=== PATIENT | female | born 1945 | race Asian ===

== ENCOUNTER 2018-04-23 17:01 | Inpatient (IN) | payer MEDICARE, OTHER ==
[~2018-04-23] VITALS: Ht 157.5 cm; Wt 46.3 kg
--- NOTE | 2018-04-23 17:10 | NUR ---
Dr Claros at the bedside for MSE.
[2018-04-23] MEDS ORDERED: ALBUTEROL SULFATE 2.5 MG/3 ML NEBU ONE (17:28)
[2018-04-23] MEDS ORDERED: ALBUTEROL SULFATE 2.5 MG/ 0.5 ML NEBU NEB ONE (17:30)
--- NOTE | 2018-04-23 17:34 | NUR ---
Pt is medically cleared by Dr Claros.
[2018-04-23] MEDS ORDERED: OLAN7.5T3 PO (18:05)
[2018-04-23] MEDS ORDERED: IPRA12.9 INH (18:05)
[2018-04-23] MEDS ORDERED: TRAV5DRO EACHEYE (18:05)
[2018-04-23] MEDS ORDERED: CANA1TAB8 PO (18:05)
[2018-04-23] MEDS ORDERED: PRIM250T PO (18:05)
[2018-04-23] MEDS ORDERED: BRIN8DRO OP (18:05)
[2018-04-23] MEDS ORDERED: ATOR10TA PO (18:05)
[2018-04-23] MEDS ORDERED: INSU100V10 SQ (18:05)
[2018-04-23] MEDS ORDERED: FLUT1BLS4 IH (18:05)
[2018-04-23] MEDS ORDERED: ALBU6.7H INH (18:05)
[2018-04-23] MEDS ORDERED: LEVO88TA5 PO (18:05)
[2018-04-23 18:20] VITALS: BP 104/56
--- NOTE | 2018-04-23 18:20 | NUR ---
Pt received from ER on a gurney. Pt is awake, calm, guarded, cooperative. Pt is denying distress, oriented to self. Pt is disorganized, responds don't make sense, asks repeatedly to call CHHAYA Barton. Pt is unable/refuses to sign paperwork (tremors present). Dr. Dyson and Chance Crockett notified.
[2018-04-23] MEDS ORDERED: MAGNESIUM HYDROXIDE 30 ML LIQUID UDC PO PRN (18:45)
[2018-04-23] MEDS ORDERED: ACETAMINOPHEN 325 MG TABLET PO PRN (18:45)
[2018-04-23] MEDS ORDERED: MAG HYDROX/AL HYDROX/SIMETH 30 ML LIQUID UDC PO PRN (18:45)
[2018-04-23] MEDS ORDERED: DEXTROSE 50% 50 ML DISP.SYRIN IV PRN (19:15)
[2018-04-23] MEDS: BLOOD SUGAR DIAGNOSTIC 1 EACH STRIP VI SCH (20:23)
[2018-04-23] MEDS: LATANOPROST OPHT DROP 2.5 ML BOTTLE EACHEYE SCH (20:25)
[2018-04-23] MEDS: INSULIN REGULAR, HUMAN 300 UNIT/3 ML VIAL SQ PRN (20:36)
[2018-04-23] MEDS: INSULIN GLARGINE,HUM 300 UNITS/3 ML CARTRIDGE SQ SCH (20:37)
[2018-04-23] MEDS ORDERED: TRAVOPROST 0.004% OPHT DROP 2.5 ML BOTTLE EACHEYE SCH (21:00)
[2018-04-23] MEDS ORDERED: INSULIN DETEMIR 300 UNIT/3 ML CARTRIDGE SQ SCH (21:00)
[2018-04-24] MEDS: BLOOD SUGAR DIAGNOSTIC 1 EACH STRIP VI SCH ×4 (06:46→20:59)
[2018-04-24 07:30] VITALS: BP 115/49
[2018-04-24] MEDS: FLUTICASONE/VILANTEROL 1 EACH BLST.W.DEV INH SCH (08:25)
[2018-04-24] MEDS: INSULIN REGULAR, HUMAN 300 UNIT/3 ML VIAL SQ PRN ×3 (12:13→21:06)
--- NOTE | 2018-04-24 14:09 | NUR ---
Initial Discharge Plan: Patient lives with her in a condo [[address] [place] [address]; [address] [place] [address]; ]. Per patients , he would like patient to return home as she is "happy" there. Patients , Sesar Reddy [[phone]] will be involved in treatment. riprap worker will continue to collaborate with patients MD and plan a safe and proper discharge.
--- NOTE | 2018-04-24 14:50 | NUR ---
UR Note: onyx chip terrazzo worker faxed patient clinicals to Jame with [facility] [phone: ; fax: ] for 04/24/2018.
[2018-04-24 19:30] VITALS: BP 130/65
[2018-04-24] MEDS: DIVALPROEX 125 MG TABLET.DR PO SCH (20:55)
[2018-04-24] MEDS ORDERED: OLANZAPINE 2.5 MG TABLET PO SCH (21:00)
[2018-04-24] MEDS: INSULIN GLARGINE,HUM 300 UNITS/3 ML CARTRIDGE SQ SCH (21:04)
[2018-04-24] MEDS: LATANOPROST OPHT DROP 2.5 ML BOTTLE EACHEYE SCH (21:21)
[2018-04-24] MEDS: TEMAZEPAM 7.5 MG CAPSULE PO PRN (22:54)
[2018-04-25] MEDS: LORAZEPAM 0.5 MG TABLET PO PRN (00:08)
[2018-04-25] MEDS: BLOOD SUGAR DIAGNOSTIC 1 EACH STRIP VI SCH ×4 (07:16→20:27)
[2018-04-25 07:30] VITALS: BP 99/44
[2018-04-25] MEDS: FLUTICASONE/VILANTEROL 1 EACH BLST.W.DEV INH SCH (08:16)
[2018-04-25] MEDS: DIVALPROEX 125 MG TABLET.DR PO SCH (08:16)
[2018-04-25] MEDS: INSULIN REGULAR, HUMAN 300 UNIT/3 ML VIAL SQ PRN (12:16)
[2018-04-25 16:18] VITALS: BP 129/42
[2018-04-25 19:30] VITALS: BP 130/70
[2018-04-25] MEDS: LATANOPROST OPHT DROP 2.5 ML BOTTLE EACHEYE SCH (20:44)
[2018-04-25] MEDS: DIVALPROEX 250 MG TABLET.DR PO SCH (20:44)
[2018-04-25] MEDS: BENZTROPINE MESYLATE 0.5 MG TABLET PO SCH (20:45)
[2018-04-25] MEDS: INSULIN GLARGINE,HUM 300 UNITS/3 ML CARTRIDGE SQ SCH (20:48)
[2018-04-25] MEDS ORDERED: DIVALPROEX 125 MG TABLET.DR PO SCH (21:00)
[2018-04-25] MEDS ORDERED: OLANZAPINE 2.5 MG TABLET PO SCH (21:00)
[2018-04-26] MEDS: BLOOD SUGAR DIAGNOSTIC 1 EACH STRIP VI SCH ×4 (06:41→21:17)
--- NOTE | 2018-04-26 07:00 | NUR ---
Received pt to care, pt laying in bed, pt pleasant, A&O X1-2, pt complied with taking meds, pt disorganized, confused, redirected to bed several times before she finally stayed in her room and slept throughout the night. Pt refused to have a snack but did drink 2 juices.
[2018-04-26 07:30] VITALS: BP 101/42
[2018-04-26] MEDS: DIVALPROEX 250 MG TABLET.DR PO SCH ×2 (08:54→21:07)
[2018-04-26] MEDS: FLUTICASONE/VILANTEROL 1 EACH BLST.W.DEV INH SCH (08:56)
--- NOTE | 2018-04-26 11:45 | NUR ---
Noted pt with a cough while performing her 1130 Accu check. Notified RESIDENT DOCTOR
[2018-04-26] MEDS: INSULIN REGULAR, HUMAN 300 UNIT/3 ML VIAL SQ PRN ×3 (12:08→21:09)
--- NOTE | 2018-04-26 12:21 | NUR ---
New orders from HOSPICE CLINICAL MARKETER Kvng for a CXR and cough medication 100mg PO Robitussin sugar free Q4PRN (d/t DM). Noted and carried out.
--- NOTE | 2018-04-26 13:25 | NUR ---
gps/Checking Department Supervisor- Noted patient to have increased congestion, moist coughing, difficulty expectorating secretions. Kept up on her george-chair during lunch, needing min. assist. and cueing . Had portable chest x-ray done this pm.
[2018-04-26] MEDS: LORAZEPAM 0.5 MG TABLET PO PRN (13:36)
[2018-04-26 16:18] VITALS: BP 124/56
[2018-04-26] MEDS: GUAIFENESIN SUGAR FREE 100 MG/5 ML UDC PO PRN ×2 (17:12→21:28)
--- NOTE | 2018-04-26 17:23 | NUR ---
Gps/Container Shop Welder- Stayed up on her george-chair for dinner, needed encouragement to eat,adequate fluids. Occ. noted irritability, from crying spells, wanting to go home. Safety reviewed continue to emphasized. No Hypo/hyperglycemia noted. Less coughing noted this pm.
--- NOTE | 2018-04-26 17:38 | NUR ---
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 Addendum: 04/26/18 at 1740 by NICHO POTTER RN Amended: Links added.
--- NOTE | 2018-04-26 17:53 | NUR ---
GPS.RN- Patient visiting, Sesar, provided history to patient, patient with pseudoparkinsonism, patient was seen previously by 3 doctors she was determined to not have Parkinsons, but pseudoparkinsonism. patient also had Thyroid removed in 01/2005. Discussed with Kvng Smith N.P. patient previously on Synthroid 88mcg daily and Primidone 50mg daily however medications not resumed, received orders to continue meds and order TSH level in am.
--- NOTE | 2018-04-26 19:50 | NUR ---
RECEIVED PATIENT SITTING IN A BONNY CHAIR NEAR THE NURSING STATION. SHE IS NOTED A/O X 1 OR 2. FORGETFUL, AND DISORGANIZED. SHE IS ABLE TO AMBULATE WITH STEADY GAIT AND ABLE TO MAKE HER NEEDS KNOWN. PATIENT NOTED WITH BRIGHT AFFECT, HAPPY FACIAL EXPRESSION. POOR HISTORIAN, POOR INSIGHT INTO THE REASON FOR HER ADMISSION TO MHU WAS ALSO NOTED. SAFETY WAS EMPHASIS. WILL CONTINUE TO MONITOR.
[2018-04-26 20:34] VITALS: BP 114/54
[2018-04-26] MEDS ORDERED: OLANZAPINE 5 MG TABLET PO SCH (21:00)
[2018-04-26] MEDS ORDERED: OLANZAPINE 2.5 MG TABLET PO SCH (21:00)
[2018-04-26] MEDS: LATANOPROST OPHT DROP 2.5 ML BOTTLE EACHEYE SCH (21:07)
[2018-04-26] MEDS: BENZTROPINE MESYLATE 0.5 MG TABLET PO SCH (21:07)
[2018-04-26] MEDS: INSULIN GLARGINE,HUM 300 UNITS/3 ML CARTRIDGE SQ SCH (21:10)
--- NOTE | 2018-04-26 21:30 | NUR ---
PATIENT NOTED WITH DRY MOUTH DRY THROAT, COUGHING, RASPY VOICE. FLUIDS WERE OFFER WELL ROBITUSSIN PO PRN WAS GIVEN. WILL CONTINUE TO MONITOR
--- NOTE | 2018-04-26 23:00 | NUR ---
PATIENT NOTED AWAY, CONTINUE ASKING FOR FLUIDS, CONTINUE FORGETFUL AND DISORGANIZED. TEMAZEPAM 7.5MG PO PRN WAS GIVEN FOR INSOMNIA. WILL CONTINUE TO MONITOR,
[2018-04-26] MEDS: TEMAZEPAM 7.5 MG CAPSULE PO PRN (23:03)
--- NOTE | 2018-04-27 01:30 | NUR ---
PATIENT NOTED STILL AWAKE. IRRITABLE AND ANXIOUS, MULTIPLE REDIRECTION GIVEN, YET INEFFECTIVE. ATIVAN 0.5MG PO PRN WAS GIVEN FOR ANXIETY. WILL CONTINUE TO MONITOR.
[2018-04-27] MEDS: LORAZEPAM 0.5 MG TABLET PO PRN (01:32)
--- NOTE | 2018-04-27 03:45 | NUR ---
PATIENT NOTED AWAKE AND SLEEPING INTERMITTENTLY. NO COUGH NOTED AT THIS TIME. WILL CONTINUE TO MONJTOR.
[2018-04-27] MEDS: LEVOTHYROXINE SODIUM 88 MCG TABLET PO SCH (06:49)
[2018-04-27 07:11] LABS: BASOPHILS % (AUTO) 0.2 % (0.0-2.0); EOSINOPHILS % (AUTO) 0.4 % (0.0-7.0); HEMATOCRIT 32.4 % (31.2-41.9); HEMOGLOBIN 11.2 g/dL (10.9-14.3); LYMPHOCYTES # (AUTO) 1.6 K/uL (20.0-40.0); LYMPHOCYTES % (AUTO) 24.8 % (20.5-51.5); MEAN CORPUSCULAR HEMOGLOBIN 31.7 uug (24.7-32.8); MEAN CORPUSCULAR HGB CONC 35 g/dL (32.3-35.6); MEAN CORPUSCULAR VOLUME 91.3 fL (75.5-95.3); MONOCYTES # (AUTO) 0.4 K/uL (2.0-10.0); MONOCYTES % (AUTO) 6.2 % (0.0-11.0); NEUTROPHILS # (AUTO) 4.4 K/uL (1.8-8.9); NEUTROPHILS % (AUTO) 68.4 % (38.5-71.5); PLATELET COUNT (AUTO) 401 K/uL (179-408); RED BLOOD CELL COUNT(AUTO) 3.55 MIL/uL (3.63-4.92); WHITE BLOOD COUNT (AUTO) 6.5 K/uL (3.8-11.8)
[2018-04-27 07:26] LABS: CARBON DIOXIDE 27 mmol/L (21-32); CHLORIDE 102 mmol/L (98-107); CREATININE 0.5 mg/dL (0.6-1.3); MAGNESIUM 1.9 mg/dL (1.8-2.4); PHOSPHOROUS 3.6 mg/dL (2.5-4.9); POTASSIUM 3.5 mmol/L (3.5-5.1); UREA NITROGEN, BLOOD 11 mg/dL (7-18)
[2018-04-27 07:29] LABS: GLUCOSE 43 mg/dL (74-106)
[2018-04-27 07:30] VITALS: BP 105/50
[2018-04-27] MEDS: BLOOD SUGAR DIAGNOSTIC 1 EACH STRIP VI SCH ×4 (07:32→20:40)
--- NOTE | 2018-04-27 07:33 | NUR ---
At approx 0645, patient blood glucose was 43, it was immediately repeated and it was 38. patient was immediately given 8oz orange juice and half of tuna sandwich. blood glucose test was repeated and is 123. will continue to monitor.
[2018-04-27 07:38] LABS: THYROID STIMULATING HORMONE 5.166 mIU/mL (0.358-3.740)
[2018-04-27] MEDS: DIVALPROEX 250 MG TABLET.DR PO SCH ×2 (08:25→20:41)
[2018-04-27] MEDS: PRIMIDONE 50 MG TABLET PO SCH (08:25)
[2018-04-27] MEDS: FLUTICASONE/VILANTEROL 1 EACH BLST.W.DEV INH SCH (08:26)
[2018-04-27] MEDS: INSULIN REGULAR, HUMAN 300 UNIT/3 ML VIAL SQ PRN ×2 (11:23→16:48)
--- NOTE | 2018-04-27 16:19 | NUR ---
UR Note: speeder worker faxed patient clinicals to Jame [fax: [phone]; ph#: [phone]], correctional case manager, and received confirmation of successful fax at 15:06.
[2018-04-27 16:40] VITALS: BP 101/46
[2018-04-27 20:00] VITALS: BP 94/46
[2018-04-27] MEDS: LATANOPROST OPHT DROP 2.5 ML BOTTLE EACHEYE SCH (20:41)
[2018-04-27] MEDS: BENZTROPINE MESYLATE 0.5 MG TABLET PO SCH (20:41)
[2018-04-27] MEDS: OLANZAPINE 5 MG TABLET PO SCH (20:50)
[2018-04-27] MEDS ORDERED: INSULIN GLARGINE,HUM 300 UNITS/3 ML CARTRIDGE SQ SCH (21:00)
[2018-04-28] MEDS: LEVOTHYROXINE SODIUM 88 MCG TABLET PO SCH (06:04)
--- NOTE | 2018-04-28 06:21 | NUR ---
GPS: Remain calm and cooperative with medications and care. assisted with adl's. patient resting in george chair near nursing station.slept 7 hrs through the night. no behavior problem noted.
--- NOTE | 2018-04-28 06:38 | NUR ---
GPS: BLOOD SUGAR 36MG/DL REPEATED BLOOD SUGAR 39MG/DL. ant Nelson reported via phone. orange juice 8oz po given with sixto barney. after 15 minuted blood sugar 74 mg/dl. charge nurse aware.patient a/o x3 ambulatory. no c/o pain or discomfort. v/s wnl. continue plan of care.
[2018-04-28] MEDS: BLOOD SUGAR DIAGNOSTIC 1 EACH STRIP VI SCH ×5 (06:44→20:53)
[2018-04-28 07:30] VITALS: BP 103/49
[2018-04-28] MEDS: FLUTICASONE/VILANTEROL 1 EACH BLST.W.DEV INH SCH (09:39)
[2018-04-28] MEDS: PRIMIDONE 50 MG TABLET PO SCH (09:39)
[2018-04-28] MEDS: DIVALPROEX 250 MG TABLET.DR PO SCH ×2 (09:39→20:13)
[2018-04-28] MEDS: INSULIN REGULAR, HUMAN 300 UNIT/3 ML VIAL SQ PRN ×3 (11:44→20:57)
[2018-04-28 17:40] VITALS: BP 107/52
[2018-04-28 20:05] VITALS: BP_SYST 111; BP_SYST 112; BP_DIAS 40; BP_DIAS 59
[2018-04-28] MEDS: OLANZAPINE 5 MG TABLET PO SCH (20:13)
[2018-04-28] MEDS: LATANOPROST OPHT DROP 2.5 ML BOTTLE EACHEYE SCH (20:13)
[2018-04-28] MEDS: BENZTROPINE MESYLATE 0.5 MG TABLET PO SCH (20:13)
[2018-04-28] MEDS: INSULIN GLARGINE,HUM 300 UNITS/3 ML CARTRIDGE SQ SCH (20:58)
--- NOTE | 2018-04-29 05:57 | NUR ---
GPS: Remain calm and cooperative. slept 6 hrs through the night. no agitation noted. resting in george chair near the nursing station.
[2018-04-29] MEDS: LEVOTHYROXINE SODIUM 88 MCG TABLET PO SCH (06:16)
[2018-04-29] MEDS: BLOOD SUGAR DIAGNOSTIC 1 EACH STRIP VI SCH ×4 (06:32→20:39)
[2018-04-29 07:53] VITALS: BP 103/49
[2018-04-29] MEDS: PRIMIDONE 50 MG TABLET PO SCH (08:02)
[2018-04-29] MEDS: DIVALPROEX 250 MG TABLET.DR PO SCH ×2 (08:02→20:16)
[2018-04-29] MEDS: FLUTICASONE/VILANTEROL 1 EACH BLST.W.DEV INH SCH (08:03)
[2018-04-29] MEDS: INSULIN REGULAR, HUMAN 300 UNIT/3 ML VIAL SQ PRN ×3 (12:19→20:44)
[2018-04-29 15:19] VITALS: BP 134/51
[2018-04-29 20:00] VITALS: BP 115/48
[2018-04-29] MEDS: OLANZAPINE 5 MG TABLET PO SCH (20:15)
[2018-04-29] MEDS: LATANOPROST OPHT DROP 2.5 ML BOTTLE EACHEYE SCH (20:15)
[2018-04-29] MEDS: BENZTROPINE MESYLATE 0.5 MG TABLET PO SCH (20:16)
[2018-04-29] MEDS: INSULIN GLARGINE,HUM 300 UNITS/3 ML CARTRIDGE SQ SCH (20:45)
[2018-04-30] MEDS: LEVOTHYROXINE SODIUM 88 MCG TABLET PO SCH (06:04)
--- NOTE | 2018-04-30 06:16 | NUR ---
GPS: REMAIN CALM AND COOPERATIVE SLEPT 8 HRS THROUGH THE NIGHT.
[2018-04-30] MEDS: BLOOD SUGAR DIAGNOSTIC 1 EACH STRIP VI SCH ×4 (06:31→20:43)
[2018-04-30 07:30] VITALS: BP 108/51
--- NOTE | 2018-04-30 07:43 | NUR ---
report received from Alexandr NOBLE. 72 yr old female patient admitted on 04/23/18. plan for dc home today. patient still sleepin on bed Addendum: 04/30/18 at 0744 by YENNY EVANGELISTA RN Amended: Links added.
[2018-04-30] MEDS: INSULIN REGULAR, HUMAN 300 UNIT/3 ML VIAL SQ PRN ×4 (08:13→20:58)
--- NOTE | 2018-04-30 08:20 | NUR ---
am willi 259, covered with 6 units humulin R SQ Addendum: 04/30/18 at 0821 by YENNY EVANGELISTA RN Amended: Links added.
[2018-04-30] MEDS: OLANZAPINE 5 MG TABLET PO SCH ×2 (09:25→20:36)
[2018-04-30] MEDS: DIVALPROEX 250 MG TABLET.DR PO SCH ×2 (09:25→20:27)
[2018-04-30] MEDS: PRIMIDONE 50 MG TABLET PO SCH (09:27)
[2018-04-30] MEDS: FLUTICASONE/VILANTEROL 1 EACH BLST.W.DEV INH SCH (09:28)
--- NOTE | 2018-04-30 09:43 | NUR ---
Discharge Note: Patient will be discharged back to home [[address] [place] [address] , [address] [place] [address]] with her , Sesar [ ] who will provide transportation for patient at 12:00. nutrition services worker called and spoke with Sesar informing him of patient discharge and he is agreeable with discharge plan. Patient is alert and oriented x2 and denies any SI/HI. Patient will follow-up with Dr. Mata Henriquez [ ] (primary care physician) and Dr. Le Srinivasan (psychiatrist). Patient was given outpatient mental health resources [facility] Crisis Line , Surekha Dubois , and the [place] Suicide Prevention Lifeline . Patient is aware of discharge plan and is agreeable. Addendum: 04/30/18 at 1253 by UDAY CASTELLANOS Additional Information: nutrition services worker received phone call from Jame [[phone]], case therapist, at [facility] providing information for outpatient follow-up. Patient will receive outpatient follow-up by Dr. Montes[ [phone]] and has an appointment scheduled for 05/07/2018 at 10:am. Patient additionally will follow outpatient with Dr. Yosef Knott (psychiatrist). No appointment set-up at this time.
[2018-04-30] MEDS: LORAZEPAM 0.5 MG TABLET PO PRN (11:16)
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
--- NOTE | 2018-04-30 11:19 | NUR ---
medicated for anxiety Addendum: 04/30/18 at 1119 by YENNY EVANGELISTA RN Amended: Links added.
--- NOTE | 2018-04-30 12:33 | NUR ---
willi 266, covered with 6 units humulin r Addendum: 04/30/18 at 1233 by YENNY EVANGELISTA RN Amended: Links added.
--- NOTE | 2018-04-30 12:40 | NUR ---
patient decline being discharged. social sciences department chair her to talk to patient. here to pick patient up Addendum: 04/30/18 at 1240 by YENNY EVANGELISTA RN Amended: Links added.
--- NOTE | 2018-04-30 13:38 | NUR ---
Discharge update: Patient refusing to discharge stating "I need to wait for JING". Per , Dr. Brizuela, patient displaying psychotic symptoms and not ready to discharge. Patient will be monitored for a couple more days on unit. Addendum: 05/01/18 at 1147 by UDAY CASTELLANOS Additional Information: Patient was unable to be discharged yesterday due to patient agitation and patient's inability to be redirected. Patient's behavior included delusional thought process, psychomotor agitation, thought perseveration. Patient's was also on sight during discharge and states "she [patient] is far from baseline" and felt he couldn't take her home "in this state". ice cream vault worker's putty and caulking supervisor, Angela Evans [[phone]] needed to be called for assistance.
--- NOTE | 2018-04-30 15:37 | NUR ---
UR Note: drive worker faxed clincals for the weekend to Jame [[phone]; fax: [phone]], assistant merchandise manager, at [facility]. drive worker left voicemail for Jame stating that patient was not discharging today as originally anticipated due to psychotic behavior.
[2018-04-30 16:00] VITALS: BP 151/52
--- NOTE | 2018-04-30 16:34 | NUR ---
willi 276, covered with 6 units humulin R sq Addendum: 04/30/18 at 1634 by YENNY EVANGELISTA RN Amended: Links added.
--- NOTE | 2018-04-30 19:20 | NUR ---
report given to Isi RN Addendum: 04/30/18 at 1921 by YENNY EVANGELISTA RN Amended: Links added.
[2018-04-30 20:08] VITALS: BP 105/41
[2018-04-30] MEDS: BENZTROPINE MESYLATE 0.5 MG TABLET PO SCH (20:27)
[2018-04-30] MEDS: LATANOPROST OPHT DROP 2.5 ML BOTTLE EACHEYE SCH (20:28)
[2018-04-30] MEDS: INSULIN GLARGINE,HUM 300 UNITS/3 ML CARTRIDGE SQ SCH (20:49)
[2018-04-30] MEDS: GUAIFENESIN SUGAR FREE 100 MG/5 ML UDC PO PRN (20:59)
--- NOTE | 2018-04-30 23:10 | NUR ---
RECEIVED PATIENT IN BED AND UPON APPROACH SHE WAS NOTED TO BE TALKING TO HERSELF BUT WILL NOT SAY IF SHE HEARD VOICES AND WAS RESPONDING TO INTERNAL STIMULI. SHE IS GUARDED AND EASILY IRRITABLE BUT IS NOT DIRECTED AT STAFF.SHE IS HOWEVER COMPLIANT WITH HER MEDICATIONS.BLOOD SUGAR LEVELS AT 332 WITH INSULIN COVERAGE BY SLIDING SCALE AND LANTUS. NO S/S OF HYPOGLYCEMIA NOTED.IN DISTRESS ON SCHEDULED ROUNDS. WILL CONTINUE TO MONITOR.
[2018-05-01] MEDS: GUAIFENESIN SUGAR FREE 100 MG/5 ML UDC PO PRN (05:36)
[2018-05-01] MEDS: LEVOTHYROXINE SODIUM 88 MCG TABLET PO SCH (06:33)
[2018-05-01] MEDS: BLOOD SUGAR DIAGNOSTIC 1 EACH STRIP VI SCH ×2 (06:34→11:55)
--- NOTE | 2018-05-01 06:44 | NUR ---
SHE SLEPT FOR APPROX.8HRS WITH INTERMITTENT COUGH. GUAIFENESIN GIVEN WITH FAIRLY GOOD EFFECT. ACCU CHECK THIS AM IS 162.
[2018-05-01 07:30] VITALS: BP 106/59
[2018-05-01] MEDS: OLANZAPINE 5 MG TABLET PO SCH (09:53)
[2018-05-01] MEDS: DIVALPROEX 250 MG TABLET.DR PO SCH (09:53)
[2018-05-01] MEDS: PRIMIDONE 50 MG TABLET PO SCH (09:55)
[2018-05-01] MEDS: FLUTICASONE/VILANTEROL 1 EACH BLST.W.DEV INH SCH (09:55)
[2018-05-01] MEDS: INSULIN REGULAR, HUMAN 300 UNIT/3 ML VIAL SQ PRN ×2 (09:58→12:28)
--- NOTE | 2018-05-01 10:01 | NUR ---
Discharge Note: Patient will be discharged back to home [[address] [place] [address] , [address] [place] [address]] with her , Sesar [ ] who will provide transportation for patient at 12:00. aboriginal education worker coordinator is arranging home health for patient and is awaiting authorization from Jame [[phone]], case packer, at [facility]. aboriginal education worker coordinator called and spoke with Sesar informing him of patient discharge and he is agreeable with discharge plan. Patient is alert and oriented x2 and denies any SI/HI. Patient was briefed on discharge and aware and agreeable to having her pick her up at 12:00. Patient will follow-up with Dr. Mata Henriquez [ ], primary care physician, on 05/07/18 at 10:45am. Patient will follow-up outpatient with her psychiatrist, Dr. Dyer [[phone]]. Patient was given outpatient mental health resources [facility] Crisis Line , Surekha Dubois , and the National Suicide Prevention Lifeline . Addendum: 05/01/18 at 1031 by UDAY CASTELLANOS Additional Information: aboriginal education worker coordinator received phone call from Jame [[phone]], case packer, at [facility] stating that patient has been approved for home health services with [facility] [[phone]]. The agency has been scheduled to come out tomorrow to provide service to patient. Addendum: 05/01/18 at 1207 by UDAY CASTELLANOS Update: Patient will now be discharged via [facility] [employer] at 1:30pm. Pickup was arranged by Yolette with [facility] [[phone]] who has noted that patient should be walked to the door where patient's , Sesar [[phone]], will receive her. Patient has been made aware of updated discharge. Transportation will be paid for by [facility] and will cost $83.00. Addendum: 05/01/18 at 1427 by UDAY CASTELLANOS Additional Information: Due to patient un-cooperativeness with discharge, patient will now need [employer] transportation, which has two transporters. Cost for [facility] gurney level is $190 which patient , Sesar, has agreed to pay for. New transportation was made by Yolette [[phone]], [facility] coordinator, and she is aware that Sesar has agreed to pay for transportation.
--- NOTE | 2018-05-01 12:51 | NUR ---
patient still paranoia taking non sense about she will going home with her and person name Ty Barton,refused to discharge home with her alone,Chata Tai made aware. will discharge pt home via [facility] at 1:30pm. Pickup was arranged by Yolette with [facility] [[phone]] who has noted that patient should be walked to the door where patient's , Sesar [[phone]], will receive her. Patient has been made aware of updated discharge.
--- NOTE | 2018-05-01 13:26 | NUR ---
1300 Called patient , Sesar regarding his will be diharged today via [facility], private transportation. informed medications to continue at home and prescription is included on patient's discharge pocket. stated that he already had patint's medications it was faxed yesterday to [facility] pharmacy. Also, informed that patient refused to signed for returned belongings and valuables, but were sending it with the patient.Patient's verbalized understanding.
[2018-05-01] MEDS: LORAZEPAM 0.5 MG TABLET PO PRN (14:19)
--- NOTE | 2018-05-01 16:17 | NUR ---
1600 Patient picked up by [facility] with clint and 2 person to assist patient. Patient discharged home stable condition , denies SI/HI.
[2018-05-01] MEDS ORDERED: INSULIN GLARGINE,HUM 300 UNITS/3 ML CARTRIDGE SQ SCH (21:00)
--- NOTE | 2018-05-02 09:35 | NUR ---
Firearms Report (late entry for 05/01/2018): dimension mill worker submitted a [employer] firearms report for patient who is on a 5250 gravely disabled certification.
--- NOTE | 2018-05-02 10:45 | NUR ---
UR Note: nursery worker received authorization for stay [[id number]] for 04/23/2018-05/01/2018 from Jame [[phone]], skilled nursing case manager, at [facility]. Per Jame, apparently patient has declined home health services that were offered.
--- NOTE | 2018-05-03 11:21 | NUR ---
UR Note: grounds worker faxed SW discharge note and discharge prescriptions to Jame director of casework, at [facility] [phone: [phone]; fax: [phone]].
== END 2018-05-01 16:00 | disposition home health service (06) | DRG 885 ==
LOC: ER 17:04 → GPS 17:57
PROVIDERS: ADMIT Psychiatry & Neurology Psychosomatic Medicine; ATTEND Nurse Practitioner Acute Care
DX: F25.0 Schizoaffective disorder, bipolar type (principal); E43 Unspecified severe protein-calorie malnutrition; E11.65 Type 2 diabetes mellitus with hyperglycemia; Z68.1 Body mass index [BMI] 19.9 or less, adult; F17.210 Nicotine dependence, cigarettes, uncomplicated; H40.9 Unspecified glaucoma; J44.9 Chronic obstructive pulmonary disease, unspecified; I10 Essential (primary) hypertension; E78.5 Hyperlipidemia, unspecified; Z73.6 Limitation of activities due to disability; F29 Unspecified psychosis not due to a substance or known physiological condition; M62.50 Muscle wasting and atrophy, not elsewhere classified, unspecified site; Z79.4 Long term (current) use of insulin; F19.90 Other psychoactive substance use, unspecified, uncomplicated
CPT/HCPCS: 36415; 71045; 80164; 83735; 84100; 84443; 85025; 92610; 97116; 97530; A4663; J1815; J3490

== ENCOUNTER 2018-05-31 19:24 | Inpatient (IN) | payer OTHER ==
[~2018-05-31] VITALS: Ht 157.5 cm; Wt 45.8 kg
[~2018-05-31 19:24] MED LIST: ALBU6.7H INH; ATOR10TA PO; BRIN8DRO OP; CANA1TAB8 PO; FLUT1BLS4 IH; INSU100V10 SQ; IPRA12.9 INH; LEVO88TA5 PO; PRIM250T PO; TRAV5DRO EACHEYE
[2018-05-31] MEDS ORDERED: ONDA4VIA52 IV (19:46)
[2018-05-31] MEDS ORDERED: TRAZ-182 PO (19:46)
[2018-05-31] MEDS ORDERED: DIVA250T PO (19:46)
[2018-05-31] MEDS ORDERED: OLAN7.5T3 PO (19:46)
[2018-05-31] MEDS ORDERED: ATOR80TA PO (19:46)
[2018-05-31] MEDS ORDERED: LORA0.5T PO (19:46)
[2018-05-31] MEDS ORDERED: ASPI300S RC (19:46)
[2018-05-31] MEDS ORDERED: ASPI-869 PO (19:46)
[2018-05-31] MEDS ORDERED: HALO5AMP2 IJ (19:46)
[2018-05-31] MEDS ORDERED: ACET325T53 PO (19:46)
[2018-05-31] MEDS ORDERED: INSU100V7 SQ (19:46)
[2018-05-31 20:00] VITALS: BP 105/42
[2018-05-31] MEDS ORDERED: ACETAMINOPHEN 325 MG TABLET PO PRN ×2 (20:15→21:30)
[2018-05-31] MEDS ORDERED: TEMAZEPAM 7.5 MG CAPSULE PO PRN (20:15)
[2018-05-31] MEDS ORDERED: LORAZEPAM 0.5 MG TABLET PO PRN (20:15)
[2018-05-31] MEDS ORDERED: MAGNESIUM HYDROXIDE 30 ML LIQUID UDC PO PRN (20:15)
[2018-05-31] MEDS ORDERED: MAG HYDROX/AL HYDROX/SIMETH 30 ML LIQUID UDC PO PRN (20:15)
[2018-05-31] MEDS: ATORVASTATIN 40 MG TABLET PO SCH (21:00)
[2018-05-31 21:29] VITALS: BP 105/48
[2018-05-31] MEDS ORDERED: Medication Not On Formulary EA (Atorvastatin Calcium (Lipitor) 80 MG) PO SCH (21:30)
[2018-05-31] MEDS ORDERED: ONDANSETRON 4 MG/2 ML VIAL IV PRN (21:30)
[2018-05-31] MEDS ORDERED: ASPIRIN EC 325 MG TABLET.DR PO ONE (22:00)
[2018-05-31] MEDS ORDERED: INSULIN GLARGINE,HUM 300 UNITS/3 ML CARTRIDGE SQ SCH (22:00)
[2018-05-31] MEDS ORDERED: INSULIN GLARGINE,HUM 300 UNITS/3 ML CARTRIDGE SQ ONE (22:45)
[2018-06-01] MEDS: LEVOTHYROXINE SODIUM 88 MCG TABLET PO SCH (06:31)
[2018-06-01] MEDS ORDERED: BLOOD SUGAR DIAGNOSTIC 1 EACH STRIP VI SCH ×2 (07:30)
[2018-06-01 08:56] LABS: BASOPHILS % (AUTO) 0.6 % (0.0-2.0); EOSINOPHILS # (AUTO) 0.2 K/uL (0.0-0.7); EOSINOPHILS % (AUTO) 4.2 % (0.0-7.0); HEMATOCRIT 33.2 % (31.2-41.9); HEMOGLOBIN 11.3 g/dL (10.9-14.3); LYMPHOCYTES # (AUTO) 2.2 K/uL (20.0-40.0); LYMPHOCYTES % (AUTO) 39.9 % (20.5-51.5); MEAN CORPUSCULAR HEMOGLOBIN 31.1 uug (24.7-32.8); MEAN CORPUSCULAR HGB CONC 34 g/dL (32.3-35.6); MEAN CORPUSCULAR VOLUME 91.8 fL (75.5-95.3); MONOCYTES # (AUTO) 0.6 K/uL (2.0-10.0); MONOCYTES % (AUTO) 10.9 % (0.0-11.0); NEUTROPHILS # (AUTO) 2.4 K/uL (1.8-8.9); NEUTROPHILS % (AUTO) 44.4 % (38.5-71.5); PLATELET COUNT (AUTO) 296 K/uL (179-408); RED BLOOD CELL COUNT(AUTO) 3.62 MIL/uL (3.63-4.92); WHITE BLOOD COUNT (AUTO) 5.5 K/uL (3.8-11.8)
[2018-06-01] MEDS ORDERED: ASPIRIN 300 MG RECTAL SUPP RC SCH (09:00)
[2018-06-01 09:22] LABS: CARBON DIOXIDE 24 mmol/L (21-32); CHLORIDE 108 mmol/L (98-107); CREATININE 0.9 mg/dL (0.6-1.3); GLUCOSE 186 mg/dL (74-106); POTASSIUM 4.1 mmol/L (3.5-5.1); UREA NITROGEN, BLOOD 24 mg/dL (7-18)
[2018-06-01] MEDS: ASPIRIN EC 325 MG TABLET.DR PO SCH (09:39)
[2018-06-01 10:13] VITALS: BP 95/43
[2018-06-01] MEDS ORDERED: DEXTROSE 50% 50 ML DISP.SYRIN IV PRN (11:15)
[2018-06-01] MEDS: BLOOD SUGAR DIAGNOSTIC 1 EACH STRIP VI SCH ×3 (12:09→20:16)
[2018-06-01] MEDS: INSULIN REGULAR, HUMAN 300 UNIT/3 ML VIAL SQ PRN ×2 (12:17→18:00)
[2018-06-01] MEDS: DIVALPROEX 250 MG TABLET.DR PO SCH (17:58)
[2018-06-01] MEDS: ATORVASTATIN 40 MG TABLET PO SCH (20:16)
[2018-06-01] MEDS: OLANZAPINE ZYDIS 5 MG TAB.RAPDIS PO SCH (20:17)
[2018-06-01] MEDS: INSULIN GLARGINE,HUM 300 UNITS/3 ML CARTRIDGE SQ SCH (20:24)
[2018-06-01] MEDS: INSULIN REGULAR, HUMAN 300 UNITS/3 ML VIAL SQ PRN (20:26)
[2018-06-01 20:57] VITALS: BP 109/44
[2018-06-02] MEDS: BLOOD SUGAR DIAGNOSTIC 1 EACH STRIP VI SCH ×4 (06:30→20:27)
[2018-06-02] MEDS: LEVOTHYROXINE SODIUM 88 MCG TABLET PO SCH (06:30)
[2018-06-02 07:30] VITALS: BP 109/57
[2018-06-02] MEDS: INSULIN REGULAR, HUMAN 300 UNIT/3 ML VIAL SQ PRN ×3 (08:12→17:00)
[2018-06-02] MEDS: OLANZAPINE ZYDIS 5 MG TAB.RAPDIS PO SCH ×2 (08:32→20:06)
[2018-06-02] MEDS: DIVALPROEX 250 MG TABLET.DR PO SCH ×3 (08:32→17:13)
[2018-06-02] MEDS: ASPIRIN EC 325 MG TABLET.DR PO SCH (08:33)
[2018-06-02 15:04] VITALS: BP 100/41
[2018-06-02] MEDS: ATORVASTATIN 40 MG TABLET PO SCH (20:06)
[2018-06-02 20:27] VITALS: BP 118/44
[2018-06-02] MEDS: INSULIN REGULAR, HUMAN 300 UNITS/3 ML VIAL SQ PRN (20:30)
[2018-06-02] MEDS: INSULIN GLARGINE,HUM 300 UNITS/3 ML CARTRIDGE SQ SCH (20:31)
[2018-06-03] MEDS: BLOOD SUGAR DIAGNOSTIC 1 EACH STRIP VI SCH ×4 (06:34→20:24)
[2018-06-03] MEDS: LEVOTHYROXINE SODIUM 88 MCG TABLET PO SCH (06:36)
[2018-06-03 07:30] VITALS: BP 110/47
[2018-06-03] MEDS: INSULIN REGULAR, HUMAN 300 UNIT/3 ML VIAL SQ PRN ×3 (07:42→17:02)
[2018-06-03] MEDS: OLANZAPINE ZYDIS 5 MG TAB.RAPDIS PO SCH ×2 (08:09→20:18)
[2018-06-03] MEDS: ASPIRIN EC 325 MG TABLET.DR PO SCH (08:09)
[2018-06-03] MEDS: DIVALPROEX 250 MG TABLET.DR PO SCH ×3 (08:09→16:01)
[2018-06-03 15:25] VITALS: BP 108/60
[2018-06-03] MEDS: ATORVASTATIN 40 MG TABLET PO SCH (20:18)
[2018-06-03 20:23] VITALS: BP 112/37
[2018-06-03] MEDS: INSULIN GLARGINE,HUM 300 UNITS/3 ML CARTRIDGE SQ SCH (20:27)
[2018-06-03] MEDS: INSULIN REGULAR, HUMAN 300 UNITS/3 ML VIAL SQ PRN (20:29)
[2018-06-04] MEDS: LEVOTHYROXINE SODIUM 88 MCG TABLET PO SCH (06:32)
[2018-06-04] MEDS: BLOOD SUGAR DIAGNOSTIC 1 EACH STRIP VI SCH ×4 (06:32→20:16)
[2018-06-04 07:30] VITALS: BP 91/50
[2018-06-04] MEDS: DIVALPROEX 250 MG TABLET.DR PO SCH ×3 (08:38→16:50)
[2018-06-04] MEDS: ASPIRIN EC 325 MG TABLET.DR PO SCH (08:38)
[2018-06-04] MEDS: OLANZAPINE ZYDIS 5 MG TAB.RAPDIS PO SCH ×2 (08:39→20:19)
[2018-06-04] MEDS: INSULIN REGULAR, HUMAN 300 UNIT/3 ML VIAL SQ PRN ×2 (12:01→16:41)
[2018-06-04 16:15] VITALS: BP 99/49
[2018-06-04] MEDS: INSULIN GLARGINE,HUM 300 UNITS/3 ML CARTRIDGE SQ SCH (20:16)
[2018-06-04] MEDS: INSULIN REGULAR, HUMAN 300 UNITS/3 ML VIAL SQ PRN (20:18)
[2018-06-04] MEDS: ATORVASTATIN 40 MG TABLET PO SCH (20:19)
[2018-06-04 20:30] VITALS: BP 125/26
[2018-06-05] MEDS: LEVOTHYROXINE SODIUM 88 MCG TABLET PO SCH (06:33)
[2018-06-05] MEDS: BLOOD SUGAR DIAGNOSTIC 1 EACH STRIP VI SCH ×2 (06:33→11:49)
[2018-06-05 07:30] VITALS: BP 98/50
[2018-06-05] MEDS: INSULIN REGULAR, HUMAN 300 UNIT/3 ML VIAL SQ PRN ×2 (08:12→11:54)
[2018-06-05] MEDS: DIVALPROEX 250 MG TABLET.DR PO SCH ×2 (08:14→12:29)
[2018-06-05] MEDS: OLANZAPINE ZYDIS 5 MG TAB.RAPDIS PO SCH (08:14)
[2018-06-05] MEDS: ASPIRIN EC 325 MG TABLET.DR PO SCH (08:14)
== END 2018-06-05 13:15 | disposition home health service (06) | DRG 885 ==
LOC: ER 19:26 → GPS 19:49
PROVIDERS: ADMIT Psychiatry & Neurology Psychiatry; ATTEND Internal Medicine
DX: F31.5 Bipolar disorder, current episode depressed, severe, with psychotic features (principal); E43 Unspecified severe protein-calorie malnutrition; E11.65 Type 2 diabetes mellitus with hyperglycemia; Z68.1 Body mass index [BMI] 19.9 or less, adult; Z79.4 Long term (current) use of insulin; J38.01 Paralysis of vocal cords and larynx, unilateral; Z85.850 Personal history of malignant neoplasm of thyroid; J44.9 Chronic obstructive pulmonary disease, unspecified; G20 Parkinson's disease; Z79.899 Other long term (current) drug therapy; I10 Essential (primary) hypertension; H40.9 Unspecified glaucoma; F03.90 Unspecified dementia, unspecified severity, without behavioral disturbance, psychotic disturbance, mood disturbance, and anxiety; G25.89 Other specified extrapyramidal and movement disorders
CPT/HCPCS: 36415; 80164; 85025; 92610; 93005; A4663; J1815; J2405; J3490